=== PATIENT | male | born 1945 | race Caucasian/White ===

== ENCOUNTER 2019-10-08 06:39 | Day surgery (SDC) | payer OTHER, BC ==
[2019-10-08 07:36] VITALS: BMI 25.8
[2019-10-08 08:32] VITALS: TEMP 98.2
[2019-10-08 13:03] VITALS: BP 165/65; PULSE 60
--- NOTE | 2019-10-11 10:34 | PATH ---
Surgical Pathology Report Patient Name: ELIZABETH ALEXIS [facility]. Rec. #: [id number] /Age/Gender: 1945 (Age: 74) / M Account: [id number] Location: [facility]-ENDOSCOPY Taken: 10/08/2019 Received: 10/08/2019 Reported: 10/11/2019 Physicians: HENRY THOMPSON Specimen(s) Received A: ASCENDING COLON POLYP B: TRANSVERSE COLON POLYP (COLD SNARE) Clinical History Colon screening Postoperative diagnosis: Polyps Final Diagnosis A. ascending colon, polyp, biopsy: Hyperplastic polyp. B. TRANSVERSE COLON, POLYP, COLD SNARE polypectomy: Tubular adenoma. Electronically Signed Judy Crespo M.D. Gross Description A. Received in formalin, labeled "biopsy ascending colon" are two rooney, irregular portions of soft tissue measuring 0.2 cm. and 0.3 cm in greatest dimension. Submitted in toto in one cassette. B. Received in formalin, labeled "transverse colon" are four rooney, irregular portions of soft tissue ranging from 0.2 - 0.3 cm. in greatest dimension. Submitted in toto in one cassette. 10/08/2019 saudi10/08/2019
== END 2019-10-08 09:35 | disposition home or self-care (01) ==
LOC: JASU-ENDO 06:39
PROVIDERS: ATTEND Internal Medicine Gastroenterology
PROC: 0DBL8ZX Excision of Transverse Colon, Via Natural or Artificial Opening Endoscopic, Diagnostic (ICD-10-PCS; 2019-10-08)
PROC: 0DBK8ZX Excision of Ascending Colon, Via Natural or Artificial Opening Endoscopic, Diagnostic (ICD-10-PCS; principal; 2019-10-08 08:00)
DX: Z12.11 Encounter for screening for malignant neoplasm of colon (principal); D12.2 Benign neoplasm of ascending colon; D12.3 Benign neoplasm of transverse colon; I35.2 Nonrheumatic aortic (valve) stenosis with insufficiency; M17.12 Unilateral primary osteoarthritis, left knee; N40.0 Benign prostatic hyperplasia without lower urinary tract symptoms; L30.9 Dermatitis, unspecified
CPT/HCPCS: 88305-TC

== ENCOUNTER 2024-06-30 07:14 | Day surgery (SDC) | payer OTHER, BC ==
[2024-06-28 13:56] VITALS: BMI 24.2
[2024-06-30] MEDS: CYCLOPENTOLATE 2% OPHTH SOLN 2 ML BOTTLE ONE (07:35)
[2024-06-30] MEDS: TROPICAMIDE 1% OPHTH SOLN 15 ML BOTTLE ONE (07:35)
[2024-06-30] MEDS: PHENYLEPHRINE 2.5% OPTHALMIC DROP 2ML BOTTLE ONE (07:35)
[2024-06-30] MEDS: CIPROFLOXACIN 0.3% EYE DROPS 5 ML BOTTLE ONE (07:35)
[2024-06-30] MEDS ORDERED: CARBACHOL 0.01% INTRA-OCULAR 1.5 ML VIAL ONE (08:42)
[2024-06-30] MEDS ORDERED: TETRACAINE 0.5% OPHTH SOLN 2 ML BOTTLE ONE (08:42)
[2024-06-30] MEDS ORDERED: EPINEPHrine/PF 1 MG/1 ML (1:1,000) AMPULE ONE (08:42)
[2024-06-30] MEDS ORDERED: NEO/POLYMYX B SULF/DEXAMETH OPHTHALMIC 5ML BOTTLE ONE (08:42)
[2024-06-30] MEDS ORDERED: BSS (NA/CA/MG/K) BALANCED SALT SOLUTION OPHTH SOLN 15 ML BOTTLE ONE (08:42)
[2024-06-30] MEDS ORDERED: LIDOCAINE 1% P/F 10 MG/ML VIAL ONE (08:42)
[2024-06-30] MEDS ORDERED: MIDAZOLAM HCL 2 MG/2 ML SINGLE DOSE VIAL ONE (09:10)
[2024-06-30 10:01] VITALS: RESP 18; TEMP 97.1
[2024-06-30 10:36] VITALS: BP 154/74; PULSE 48
== END 2024-06-30 10:25 | disposition home or self-care (01) ==
LOC: FASU 07:14
PROVIDERS: ATTEND Ophthalmology
PROC: 08RJ3JZ Replacement of Right Lens with Synthetic Substitute, Percutaneous Approach (ICD-10-PCS; principal; 2024-06-30 09:21)
DX: H26.8 Other specified cataract (principal)
CPT/HCPCS: 66984; V2632